=== PATIENT | female | born 1980 | race Two or more races ===

== ENCOUNTER 2021-10-28 14:27 | Inpatient (IN) | payer OTHER ==
[2021-10-28 16:18] VITALS: RESP 18; BMI 21.6
[2021-10-28] MEDS ORDERED: IBUPROFEN 600 MG TABLET (FP) PO PRN (17:17)
[2021-10-28] MEDS ORDERED: methaDONE HCL 10 MG TABLET (FOR DETOX USE ONLY) PO ONE (17:17)
[2021-10-28] MEDS ORDERED: LOPERAMIDE HCL 2 MG CAPSULE PO PRN (17:17)
[2021-10-28] MEDS ORDERED: ONDANSETRON *ODT* 4 MG TABLET SL PRN (17:17)
[2021-10-28] MEDS ORDERED: DICYCLOMINE HCL 10 MG CAPSULE PO PRN (17:17)
[2021-10-28] MEDS ORDERED: IBUPROFEN 400 MG TABLET (FP) PO PRN (17:17)
[2021-10-28] MEDS ORDERED: MAGNESIUM HYDROX 2400MG/30ML ORAL SUSPENSION 30 ML CUP PO PRN (17:17)
[2021-10-28] MEDS ORDERED: cloNIDine HCL 0.1 MG TABLET PO PRN (17:17)
[2021-10-28] MEDS ORDERED: ACETAMINOPHEN 325 MG TABLET (FP) PO PRN ×2 (17:17)
[2021-10-28] MEDS ORDERED: MAG HYDROX/AL HYDROX/SIMETH 30 ML UNIT-DOSE CUP PO PRN (17:17)
[2021-10-28] MEDS ORDERED: BENZOCAINE/MENTHOL (CHLORASEPTIC ) LOZENGE MM PRN (17:17)
[2021-10-28] MEDS ORDERED: BISMUTH SUBSALICYLATE 524 MG/30 ML PO PRN (17:17)
[2021-10-28] MEDS ORDERED: METHOCARBAMOL 500 MG TABLET PO PRN (17:17)
[2021-10-28] MEDS ORDERED: MAGNESIUM CITRATE 300 ML BOTTLE PO PRN (17:17)
[2021-10-28] MEDS ORDERED: MELATONIN 5 MG TABLETS PO SCH (22:00)
[2021-10-28] MEDS ORDERED: THIAMINE HCL 100 MG TABLET (FP) PO SCH (22:00)
[2021-10-28] MEDS ORDERED: QUEtiapine FUMARATE 100 MG TABLET (FP) PO ONE (22:00)
[2021-10-29] MEDS: ALBUTEROL SO4 HFA INHALER IH PRN ×2 (03:22→07:25)
[2021-10-29 07:12] VITALS: BP 162/97; PULSE 94; TEMP 96
[2021-10-29] MEDS ORDERED: ALBUTEROL SO4 2.5/IPRATROPIUM 0.5 INH SOL 3 ML VIAL.NEB. NEB PRN (07:35)
[2021-10-29] MEDS ORDERED: PRENATAL VITAMINS W/ FOLIC ACID TABLET (FP) PO SCH (10:00)
[2021-10-29 10:56] LABS: HEMOGLOBIN 7.6 GM/dL (10.7-15.3); MCH 21.9 pg (25.7-33.7); MCHC 31.5 g/dl (32.0-36.0); MEAN CELL VOLUME 69.7 fl (80-96); MEAN PLT VOLUME 9.4 fl (7.5-11.1); PLATELET COUNT 228 10^3/uL (134-434); RBC 3.44 M/mm3 (3.60-5.2); RDW 18.5 % (11.6-15.6)
[2021-10-29 11:17] LABS: CALCIUM 8.9 mg/dL (8.5-10.1)
[2021-10-29 11:18] LABS: ALBUMIN 3.1 g/dl (3.4-5.0); BLOOD UREA NITROGEN 10.8 mg/dL (7-18)
[2021-10-29 11:21] LABS: CREATININE 0.7 mg/dL (0.55-1.3)
[2021-10-29 11:23] LABS: BILIRUBIN,TOTAL 0.5 mg/dL (0.2-1); TOT PROT 7.7 g/dl (6.4-8.2)
[2021-10-30] MEDS ORDERED: methaDONE HCL 10 MG TABLET (FOR DETOX USE ONLY) PO ONE (10:00)
[2021-11-01] MEDS ORDERED: methaDONE HCL 10 MG TABLET (FOR DETOX USE ONLY) PO ONE (10:00)
== END 2021-10-29 10:30 | disposition left against medical advice (07) | DRG 770 ==
LOC: YASAS 14:27 → UNDOADMIN 18:05 → Y3N 18:05
PROVIDERS: ADMIT Allergy & Immunology; ATTEND Surgery
PROC: HZ2ZZZZ Detoxification Services for Substance Abuse Treatment (ICD-10-PCS; principal; 2021-10-28)
DX: F11.23 Opioid dependence with withdrawal (principal); F14.20 Cocaine dependence, uncomplicated; F16.20 Hallucinogen dependence, uncomplicated; F31.9 Bipolar disorder, unspecified; J45.40 Moderate persistent asthma, uncomplicated; Z28.310 Unvaccinated for COVID-19
CPT/HCPCS: 36415; 80053; 81025; 85027; 86780; 94640; C9803-CS; U0003; U0005